=== PATIENT | male | born 1960 | race Caucasian/White ===

== ENCOUNTER 2018-05-03 01:13 | Inpatient (IN) ==
[2018-05-03] MEDS ORDERED: *HR* OxyCODONE/APAP 10/325 TABLET PO ONE (01:36)
[2018-05-03 01:41] LABS: Basophils # 0.1 K/mcL (0.0-0.2); Basophils % 0.4 %; Eosinophils # 0.2 K/mcL (0.0-0.6); Eosinophils % 1.3 %; Hematocrit 45.9 % (37.5-50.1); Hemoglobin 15.6 g/dL (12.9-16.9); Immature Granulocytes % 0.5 % (0-4); Lymphocytes # 2.9 K/mcL (0.6-4.6); Mean Corpuscular Hemoglobin 29.8 pg (28.0-33.3); Mean Corpuscular Volume 87.8 fL (83.0-100.0); Mean Platelet Volume 9.2 fL (9.4-12.4); Monocytes # 0.7 K/mcL (0.0-1.3); Monocytes % 5.6 %; Neutrophils # 8.6 K/mcL (1.6-8.9); Platelet Count 258 K/mcL (140-400); Red Blood Count 5.23 M/mcL (4.19-5.50); Red Cell Distribution Width 13.2 % (11.5-14.5); Segmented Neutrophils % 69.2 %
[2018-05-03 01:49] LABS: INR 1.1; Prothrombin Time 11.7 Seconds (9.4-12.1)
[2018-05-03 02:02] LABS: Troponin I < 0.03 ng/mL (< 0.04)
[2018-05-03 02:03] LABS: Alanine Aminotransferase 38 Units/L (7-52); Albumin 4.4 g/dL (3.5-5.7); Albumin/Globulin Ratio 1.6 (1.1-2.2); Alkaline Phosphatase 67 Units/L (34-104); Amylase 19 Units/L (29-103); Aspartate Amino Transferase 64 Units/L (13-39); BUN/Creatinine Ratio 14 (6-26); Bilirubin,Direct 0.7 mg/dL (0.0-0.2); Bilirubin,Indirect 0.5 mg/dL (0.0-1.2); Bilirubin,Total 1.2 mg/dL (0.3-1.0); Blood Urea Nitrogen 14 mg/dL (6-20); Calcium 9.6 mg/dL (8.6-10.3); Carbon Dioxide 26 mEq/L (23-29); Chloride 104 mEq/L (98-107); Globulin 2.8 g/dL (2.4-3.5); Glucose 195 mg/dL (70-105); Lipase 17 Units/L (11-82); Osmolality,Calculated 294 (280-300); Potassium 3.6 mEq/L (3.5-5.1); Sodium 139 mEq/L (136-145); Total Protein 7.2 g/dL (6.4-8.9); eGFR For African Americans > 60 (> 60); eGFR For Non-African Americans > 60 (> 60)
[2018-05-03] MEDS ORDERED: Piperacillin/Tazobactam 3.375 GM in 0.9 % Sodium Chloride Mini Bag 100 ML IVPB ONE (02:35)
[2018-05-03] MEDS ORDERED: Temazepam 15 MG CAPSULE PO ONE ×2 (04:06→04:30)
[2018-05-03] MEDS ORDERED: OXYCODONE Oral CONC 10 MG/0.5 ML ORAL.SYG SL PRN (04:24)
[2018-05-03] MEDS ORDERED: Ondansetron 4 MG/2 ML VIAL IVP PRN (04:25)
--- NOTE | 2018-05-03 04:28 | Emergency Department Note ---
Disposition Clinical Impression: Acute cholecystitis Disposition: Admitted As Inpatient Condition: Good [facility] - Abdominal Pain HPI - General Chief Complaint: ED Abdominal Pain Stated Complaint: "gall bladder attack" Time Seen by Provider: 05/03/18 01:16 Source: patient, EMS Nursing Notes Reviewed: Yes Vital Signs Reviewed: Yes - History of Present Illness HPI Narrative: 57-year-old male who presents with concern for abdominal pain. He has exquisite tenderness in the right upper quadrant. He was diagnosed with acute cholecystitis on Tuesday and placed on outpatient amoxicillin by the [facility]. He refused surgery stating that he could treat has acute cholecystitis with Epsom salts and coconut oil. He has no fever but significant pain on arrival without vomiting or nausea. General: No acute distress HEENT: Pupils equal and reactive to light, extraoccular muscle movement is normal, TMS are clear bilaterally. Heart: RRR, No murmor rub or gallop Lungs: lungs clear, no wheezing, rales or ronchi. ABD: Right upper quadrant tenderness, Lan's sign on exam Extremities: No cyanosis, clubbing or edema Neuro: CN 2-12 in tact, no focal deficit. strength 5/5. Medical decision making Findings consistent with acute cholecystitis, stone in the gallbladder neck on CAT scan. White count is mildly elevated, AST is elevated, total bilirubin is elevated, abdomen is borderline peritoneal. We will start Zosyn, admitted to general surgical services. Pain Scale: 10 - Related Data Home Medications Medication Instructions Recorded Confirmed Esomeprazole Magnesium [Nexium] 40 mg PO DAILY 06/07/17 05/03/18 Losartan Potassium [Cozaar] 100 mg PO DAILY 06/07/17 05/03/18 Terazosin HCl 2 mg PO DAILY 06/07/17 05/03/18 metFORMIN [Glucophage] 500 mg PO BID 06/07/17 05/03/18 Allergies Allergy/AdvReac Type Severity Reaction Status Date / Time lisinopril AdvReac Cough Verified 06/01/17 09:29 All systems ED: reviewed and negative except as stated. Review of Systems: As Per HPI Abdominal Pain PMH - Past Medical History Medical history: Reports: non-contributory Psychiatric history: Reports: no psych history - Social History Smoking status: Never smoker Alcohol use: Reports: occasionally Drug use: Reports: none Physical Exam - General Limitations: no limitations General appearance: alert, in no apparent distress Course Vital Signs Temperature 97.8 F 05/03/18 01:15 Pulse Rate 73 05/03/18 01:15 Respiratory Rate 20 05/03/18 01:15 Blood Pressure 143/90 05/03/18 01:15 O2 Sat by Pulse Oximetry 95 05/03/18 01:15 Temperature 97.8 F 05/03/18 01:15 Pulse Rate 80 05/03/18 03:29 Respiratory Rate 15 05/03/18 03:29 Blood Pressure 151/84 05/03/18 03:29 O2 Sat by Pulse Oximetry 96 05/03/18 03:29 Oxygen Delivery Oxygen Delivery Room Air Abdominal Pain - Lab Data Result diagrams: 05/03/18 01:17 05/03/18 01:17 Lab Results 05/03/18 05/03/18 05/03/18 Range/Units 01:17 01:17 01:17 WBC 12.4 H (4.3-11.1) K/mcL RBC 5.23 (4.19-5.50) M/mcL Hgb 15.6 (12.9-16.9) g/dL Hct 45.9 (37.5-50.1) % MCV 87.8 (83.0-100.0) fL MCH 29.8 (28.0-33.3) pg MCHC 34.0 (31.6-35.5) g/dL RDW 13.2 (11.5-14.5) % Plt Count 258 (140-400) K/mcL MPV 9.2 L (9.4-12.4) fL Immature Gran % 0.5 (0-4) % Seg Neutrophils % 69.2 % Lymphocytes % 23.0 % Monocytes % 5.6 % Eosinophils % 1.3 % Basophils % 0.4 % Neutrophils # 8.6 (1.6-8.9) K/mcL Lymphocytes # 2.9 (0.6-4.6) K/mcL Monocytes # 0.7 (0.0-1.3) K/mcL Eosinophils # 0.2 (0.0-0.6) K/mcL Basophils # 0.1 (0.0-0.2) K/mcL PT 11.7 (9.4-12.1) Seconds INR 1.1 Sodium 139 (136-145) mEq/L Potassium 3.6 (3.5-5.1) mEq/L Chloride 104 (98-107) mEq/L Carbon Dioxide 26 (23-29) mEq/L BUN 14 (6-20) mg/dL Creatinine 0.99 (0.70-1.30) mg/dL Est GFR ( Amer) > 60 (> 60) Est GFR (Non-Af Amer) > 60 (> 60) BUN/Creatinine Ratio 14 (6-26) Glucose 195 H (70-105) mg/dL Calculated Osmolality 294 (280-300) Calcium 9.6 (8.6-10.3) mg/dL Total Bilirubin 1.2 H (0.3-1.0) mg/dL Direct Bilirubin 0.7 H (0.0-0.2) mg/dL Indirect Bilirubin 0.5 (0.0-1.2) mg/dL AST 64 H (13-39) Units/L ALT 38 (7-52) Units/L Alkaline Phosphatase 67 (34-104) Units/L Troponin I < 0.03 (< 0.04) ng/mL Serum Total Protein 7.2 (6.4-8.9) g/dL Albumin 4.4 (3.5-5.7) g/dL Globulin 2.8 (2.4-3.5) g/dL Albumin/Globulin Ratio 1.6 (1.1-2.2) Amylase 19 L (29-103) Units/L Lipase 17 (11-82) Units/L
[2018-05-03] MEDS ORDERED: Acetaminophen IV 1,000 MG/100 ML INFUS..BTL IVPB PRN (06:00)
[2018-05-03] MEDS: 0.9 % Sodium Chloride 1,000 ML IVC SCH ×2 (06:06→16:19)
[2018-05-03] MEDS ORDERED: Pantoprazole 40 MG VIAL IVP ONE (09:00)
--- NOTE | 2018-05-03 09:42 | General Surg History&Physical ---
<Tiffanie Dobbs Misty - Last Filed: 05/03/18 09:36> Date of Encounter: 05/03/18 Time of Encounter: 09:15 Assessment and Plan (1) Acute cholecystitis Current Visit: Yes Status: Acute The assessment and plan as outlined above was discussed with the patient and/or family members who expressed understanding and agreement. All questions were answered. NPO IV fluids IV antibiotics- Zosyn Supportive care and pain control Plan for Laparosocpic cholecystectomy, possible cholangiogram, possible open with Dr. Page in the next 24 hours if the patient is agreeable- he wishes to discuss his options for non-surgical intervention prior to proceeding Incentive Sprirometer every 1 hour while awake PPI therapy daily Ambulate hallways TID Repeat am labs- CBC, BMP, hepatic panel (2) Diabetes mellitus Current Visit: Yes Status: Chronic The assessment and plan as outlined above was discussed with the patient and/or family members who expressed understanding and agreement. All questions were answered. Hold PO medications while NPO Will cover with SSI Qualifiers: Diabetes mellitus type: type 2 Diabetes mellitus senior care insulin use: without senior care use Diabetes mellitus complication status: with hyperglycemia Qualified Code(s): E11.65 - Type 2 diabetes mellitus with hyperglycemia (3) Hypertension Current Visit: Yes Status: Chronic The assessment and plan as outlined above was discussed with the patient and/or family members who expressed understanding and agreement. All questions were answered. Stable at this time Metoprolol 5mg IV every 6 hours while NPO Qualifiers: Hypertension type: essential hypertension Qualified Code(s): I10 - Essential (primary) hypertension (4) GERD (gastroesophageal reflux disease) Current Visit: Yes Status: Chronic The assessment and plan as outlined above was discussed with the patient and/or family members who expressed understanding and agreement. All questions were answered. PPI therapy daily Qualifiers: Esophagitis presence: esophagitis presence not specified Qualified Code(s) : K21.9 - Gastro-esophageal reflux disease without esophagitis (5) DVT prophylaxis Current Visit: Yes Status: Acute The assessment and plan as outlined above was discussed with the patient and/or family members who expressed understanding and agreement. All questions were answered. EPCDs to bilateral lower extremities for DVT prophylaxis Ambulate hallways TID with assistance History of Present Illness Chief complaint: Abdominal pain HPI: Mr. Arroyo is a 57 year old male who presents to the emergency department with complaints of right upper quadrant and epigastric pain which started 2 days ago. He states that the pain is constant and he describes it as a sharp and stabbing pain. He states that the pain is worse with eating. He states that he did eat pork, onions, and eggs over the past 2 days all of which have caused increase in pain. He denies any nausea but states that he has vomited 4 times over the last 2 days. He denies any hematemesis or coffee-ground emesis. He states that his appetite is normal. He denies any heartburn. He admits to shortness of breath because taking a deep breath causes increased pain. He states that he does feel hot at times but did not check his temperature. He has been afebrile since admission. He admits to diarrhea which started yesterday. Denies any melena or hematochezia. Denies any difficulty with urination. He states that he did have pain similar to this in 2003 and was told that he had gallstones. He states that he did a "liver flush" which resolved his symptoms until now. Past Med Surg Social Fam HX - Past Medical History Source: patient Medical history: diabetes, GERD, hypertension, other (ED, Gout, BPH, DDD, Insomnnia, Diverticular disease) Psychiatric history: no psych history - Past Surgical History Surgical History: herniorrhaphy (umbilical with mesh), orthopedic, other ( Bilateral knee scopes, Bilateral CTR), other (Colonoscopy X2- last was approximately 4 years ago) Additional surgical history: bilateral knee surgery, umbilical hernia mesh - Social History Smoking Status: Never smoker Smokeless Tobacco Status: No Alcohol use: occasionally Drug use: none Current living situation: Home - Independent Activity Level: Independent ambulation - Family History Mother Living Status: Age at : 73 Cause of : Lung cancer Hx Family Cancer: Yes (Lung) Father Living Status: Age at : 63 Cause of : Multiple myeloma Hx Family Cancer: Yes (Multiple myeloma) Daughter Living Status: Still Living Hx Family Medical Disorders: Yes (arthritis) Medications and Allergies Esomeprazole Magnesium [Nexium] 40 mg PO DAILY 06/07/17 [History] Losartan Potassium [Cozaar] 100 mg PO DAILY 06/07/17 [History] Terazosin HCl 2 mg PO DAILY 06/07/17 [History] metFORMIN [Glucophage] 500 mg PO BID 06/07/17 [History] Amoxicillin/Clavulanate [Augmentin] 875 mg PO BIDWM 05/03/18 [History] Dicyclomine [Bentyl] 10 mg PO QID 05/03/18 [History] Ondansetron HCl [Zofran] 4 mg PO QID PRN 05/03/18 [History] 3 Allergy/AdvReac Type Severity Reaction Status Date / Time lisinopril AdvReac Cough Verified 05/03/18 09:34 Review of Systems All systems PM: reviewed and no additional remarkable complaints except as stated (in the HPI) All systems PM: The remainder of the systems were reviewed and are negative General Surgery Exam Initial Vital Signs Temp Pulse Resp BP Pulse Ox 97.8 F 73 20 143/90 95 05/03/18 01:15 05/03/18 01:15 05/03/18 01:15 05/03/18 01:15 05/03/18 01:15 Results - Labs 05/03/18 01:17 05/03/18 01:17 Abnormal lab results WBC 12.4 K/mcL (4.3-11.1) H 05/03/18 01:17 MPV 9.2 fL (9.4-12.4) L 05/03/18 01:17 Glucose 195 mg/dL (70-105) H 05/03/18 01:17 Total Bilirubin 1.2 mg/dL (0.3-1.0) H 05/03/18 01:17 Direct Bilirubin 0.7 mg/dL (0.0-0.2) H 05/03/18 01:17 AST 64 Units/L (13-39) H 05/03/18 01:17 Amylase 19 Units/L (29-103) L 05/03/18 01:17 All other labs normal. - Imaging CT scan - abdomen: report reviewed CT scan - pelvis: report reviewed Additional studies: Abdomen/Pelvis CT 05/03/18 01:18 IMPRESSION: Uncomplicated acute cholecystitis. No bile duct dilatation or apparent bile duct stone, however there is a tiny stone at the gallbladder neck. Colonic diverticulosis. Normal appendix. No evidence of urinary tract stone disease or obstructive uropathy. Borderline hepatic steatosis. D/ / Mamadou Bess / Mamadou Bess Interpreting Provider: Mamadou Bess - Attending Attestation For this encounter, I have reviewed the OFFICE TECHNOLOGIST or PA documentation, treatment plan, and medical decision making; and I have had face to face time with this patient. <Gemma Page - Last Filed: 05/03/18 19:56> Date of Encounter: 05/03/18 Time of Encounter: 12:15 Assessment and Plan (1) Acute cholecystitis Current Visit: Yes Status: Acute The assessment and plan as outlined above was discussed with the patient and/or family members who expressed understanding and agreement. All questions were answered. discussed with patient his CT results and labs discussed that I have never heard of his homeopathic therapy before nor do I think it will take care of his gallbladder disease and acute cholecystisits will plan laparoscopic cholecystectomy, possible cholangiograms possible open, risks and benefits discussed and he wishes to proceed npo ivf hydration prn pain control prn antiemetics gi/dvt prophylaxis (2) Diabetes mellitus Current Visit: Yes Status: Chronic The assessment and plan as outlined above was discussed with the patient and/or family members who expressed understanding and agreement. All questions were answered. Qualifiers: Diabetes mellitus type: type 2 Diabetes mellitus senior care insulin use: without terminal operations supervisor use Diabetes mellitus complication status: with hyperglycemia Qualified Code(s): E11.65 - Type 2 diabetes mellitus with hyperglycemia (3) GERD (gastroesophageal reflux disease) Current Visit: Yes Status: Chronic The assessment and plan as outlined above was discussed with the patient and/or family members who expressed understanding and agreement. All questions were answered. Qualifiers: Esophagitis presence: esophagitis presence not specified Qualified Code(s) : K21.9 - Gastro-esophageal reflux disease without esophagitis (4) Hypertension Current Visit: Yes Status: Chronic The assessment and plan as outlined above was discussed with the patient and/or family members who expressed understanding and agreement. All questions were answered. Qualifiers: Hypertension type: essential hypertension Qualified Code(s): I10 - Essential (primary) hypertension History of Present Illness HPI: Mr. Arroyo is a 57 year old male who has had what he describes as gallbladder pain on and off for years. He states he has read previously where if you drink epsom salts mixed with lemon juice and oil it will dissolve the gallstones or help them pass into the bowels. He states he has collected gallstones from this therapy over the years. He had an episode of RUQ pain nausea and emesis two days ago and presented to the ED. He wanted to try his homopathic therapy and was discharged. He returned overnight with increased RUQ pain. He has been having nausea or emesis. Denies diarrhea. Review of Systems All systems PM: reviewed and no additional remarkable complaints except as stated All systems PM: The remainder of the systems were reviewed and are negative General Surgery Exam Initial Vital Signs Temp Pulse Resp BP Pulse Ox 97.8 F 73 20 143/90 95 05/03/18 01:15 05/03/18 01:15 05/03/18 01:15 05/03/18 01:15 05/03/18 01:15 - General physical appearance well developed, well nourished, no distress - Eyes PERRL, normal ocular movement - ENT normal mucosa, normocephalic - Neck trachea midline - Respiratory normal expansion, clear to auscultation - Cardiovascular Cardiovascular exam: Present: RRR - Abdomen Abdomen general surgery: Present: bowel sounds present, soft, tender Abdominal Tenderness: Present: RUQ (minimally) - Integumentary Integumentary general surgery: Present: warm and dry, no abnormal pigmentation - Neurologic Present: CN 2-12 grossly intact - Musculoskeletal Present: normal posture - Psychiatric Psychiatric general surgery: Present: A&Ox3, speech is normal Results - Labs 05/03/18 01:17 05/03/18 01:17 Abnormal lab results WBC 12.4 K/mcL (4.3-11.1) H 05/03/18 01:17 MPV 9.2 fL (9.4-12.4) L 05/03/18 01:17 Glucose 195 mg/dL (70-105) H 05/03/18 01:17 POC Glucose 123 mg/dL (70-99) H 05/03/18 17:35 Total Bilirubin 1.2 mg/dL (0.3-1.0) H 05/03/18 01:17 Direct Bilirubin 0.7 mg/dL (0.0-0.2) H 05/03/18 01:17 AST 64 Units/L (13-39) H 06/20/18 01:17 Amylase 19 Units/L (29-103) L 05/03/18 01:17 All other labs normal. - Imaging CT scan - abdomen: report reviewed, image reviewed CT scan - pelvis: report reviewed, image reviewed - Attending Attestation I examined this patient and my medical decision-making was reviewed with the Resident Physician. I agree with the documented findings, disposition and treatment plan as described except to the extent set forth below.
[2018-05-03] MEDS ORDERED: Dextrose Gel 15 GM/37.5 ML TUBE PO PRN ×2 (09:57)
[2018-05-03] MEDS ORDERED: *HR* Dextrose 50 % in Water (Syg) 50 ML SYRINGE IVP PRN (09:57)
[2018-05-03] MEDS ORDERED: D5% in Water 1,000 ML IVC PRN (09:57)
[2018-05-03] MEDS ORDERED: Naloxone 0.4 MG/ML INJ IVP PRN (10:01)
[2018-05-03] MEDS: Insulin LISPRO 300 UNITS/3 ML VIAL SQ SCH ×2 (11:55→17:52)
[2018-05-03] MEDS: *HR* Metoprolol 5 MG/5 ML VIAL IVP SCH ×2 (12:03→18:33)
[2018-05-03] MEDS: Piperacillin/Tazobactam 3.375 GM in 0.9 % Sodium Chloride Mini Bag 100 ML IVPB SCH ×2 (12:04→16:21)
[2018-05-03 15:08] VITALS: BP 114/71
[2018-05-03] MEDS ORDERED: Isovue-300 50 ML VIAL IVP ONE (18:04)
--- NOTE | 2018-05-03 18:39 | Anesthesia Evaluation PreOp ---
Date of Encounter: 05/03/18 Time of Encounter: 18:52 - Past History Planned Operation: Lap cholecystectomy Cardiac History: HTN Pulmonary History: Former smoker HAND CLOTH EXAMINER History: Denies Any Significant HX Other Medical History: Diabetes Type II, GERD (Controlled) Anesthesia History: No Prior Anesthetic Complications, Past Anesthesia Alcohol Use: occasionally Drug use: none Medications and Allergies Esomeprazole Magnesium [Nexium] 40 mg PO DAILY 06/07/17 [History] Losartan Potassium [Cozaar] 100 mg PO DAILY 06/07/17 [History] Terazosin HCl 2 mg PO DAILY 06/07/17 [History] metFORMIN [Glucophage] 500 mg PO BID 06/07/17 [History] Amoxicillin/Clavulanate [Augmentin] 875 mg PO BIDWM 05/03/18 [History] Dicyclomine [Bentyl] 10 mg PO QID 05/03/18 [History] Ondansetron HCl [Zofran] 4 mg PO QID PRN 05/03/18 [History] 3 Allergy/AdvReac Type Severity Reaction Status Date / Time lisinopril AdvReac Cough Verified 05/03/18 09:34 - Meds/Allergy Pre-op Review Medications Reviewed: Yes Allergies Reviewed: Yes Anesthesia Results - Labs 05/03/18 01:17 05/03/18 01:17 Anesthesia Exam 2 Height 1.78 m Weight 92.986 kg BMI 29 Vital Signs/O2 Sat/Glucose, Most Recent Temp Pulse Resp BP Pulse Ox 99.5 F 75 18 114/71 94 05/03/18 17:55 05/03/18 17:57 05/03/18 15:04 05/03/18 15:04 05/03/18 15:04 Blood Glucose* 123 NPO (# of Hours): 8 - HEENT Pupil (Motor): Pupils equal Mallampati: I Teeth: Normal Oral Opening: Greater than 3 - Cardiac Rhythm: Regular - Pulmonary Breath Sounds: bilateral Clear Anesthesia Assess/Plan ASA Score: 2 Modified [place] Scale for Level of Consciousness: Cooperative, oriented, and tranquil Anesthetic Plan: General Monitoring Plan: Standard Monitors Recovery Plan: PACU
[2018-05-03] MEDS ORDERED: *HR* Midazolam HCl 2 MG/2 ML VIAL ONE (19:09)
[2018-05-03] MEDS ORDERED: *HR* Propofol 200 MG/20 ML VIAL IVP ONE (19:09)
[2018-05-03] MEDS ORDERED: *HR* FentaNYL (PF) 100 MCG/2 ML VIAL ONE (19:09)
[2018-05-03] MEDS ORDERED: *HR* Rocuronium Bromide 50 MG/5 ML VIAL ONE (19:12)
[2018-05-03] MEDS ORDERED: Dexamethasone 4 MG/ML VIAL ONE (19:12)
[2018-05-03] MEDS ORDERED: *HR* Succinylcholine 200 MG/10 ML VIAL IVP ONE (19:12)
[2018-05-03] MEDS ORDERED: Ondansetron 4 MG/2 ML VIAL ONE (19:12)
[2018-05-03] MEDS ORDERED: Lidocaine -MPF 2% 2 ML VIAL ONE (19:12)
--- NOTE | 2018-05-03 20:15 | Event Note ---
Date of Encounter: 05/03/18 Time of Encounter: 20:12 Patient was brought down to operative holding area. Once down here he decided he had not gone through the proper channels to have surgery, ie [facility]. We discussed that I have never heard of anyone not having their hospital bill pain for a cholecystectomy for acute cholecystitis. He states he wants to be discharged as he is no longer in pain. He is refusing surgery.
--- NOTE | 2018-05-03 20:18 | Discharge Summary ---
Orders not resulted at time of discharge: Pending orders 05/03/18 18:11 XR cholangiogram operative [XR] Routine 05/04/18 04:00 Basic Metabolic Panel AM 0400 Complete Blood Count [HEME] AM 0400 Hepatic Panel AM 0400 Date of Encounter: 05/03/18 Time of Encounter: 20:18 - Discharge Diagnosis (1) Acute cholecystitis Priority: Primary Status: Acute (2) Diabetes mellitus Priority: Secondary Status: Chronic Qualifiers: Diabetes mellitus type: type 2 Diabetes mellitus intermediate manager insulin use: without mcfp use Diabetes mellitus complication status: with hyperglycemia Qualified Code(s): E11.65 - Type 2 diabetes mellitus with hyperglycemia (3) GERD (gastroesophageal reflux disease) Priority: Secondary Status: Chronic Qualifiers: Esophagitis presence: esophagitis presence not specified Qualified Code(s) : K21.9 - Gastro-esophageal reflux disease without esophagitis (4) Hypertension Priority: Secondary Status: Chronic Qualifiers: Hypertension type: essential hypertension Qualified Code(s): I10 - Essential (primary) hypertension General Surgery Exam Initial Vital Signs Temp Pulse Resp BP Pulse Ox 97.8 F 73 20 143/90 95 05/03/18 01:15 05/03/18 01:15 05/03/18 01:15 05/03/18 01:15 05/03/18 01:15 - General physical appearance well nourished, no distress - Eyes PERRL, normal ocular movement - ENT normal mucosa, normocephalic - Neck trachea midline - Respiratory normal expansion, clear to auscultation - Cardiovascular Cardiovascular exam: Present: RRR - Abdomen Abdomen general surgery: Present: bowel sounds present, soft, non tender - Integumentary Integumentary general surgery: Present: warm and dry - Neurologic Present: CN 2-12 grossly intact - Musculoskeletal Present: normal gait, normal posture - Psychiatric Psychiatric general surgery: Present: A&Ox3 - Hospital Course Hospital course: Mr. Arroyo is a 57 year old male who was admitted for RUQ pain, nausea and emesis. He was found to have acute cholecystitis. He was admitted to the hospital with the intention to he would undergo laparoscopic cholecystectomy. He was kept npo, ivf hydration, antibiotics, prn pain control. Once patient was brought down to holding area before surgery he stated he wanted to be discharged as he no longer had abdominal pain and wanted to go home and be more diligent with his homeopathic regimen of epsom salts, oil and lemon juice to flush out his gallstones. I told him that is not an appropriate remedy as it does not work. He refused surgery. He was returned to the hospital floor and discharged home. - Time Spent with Patient Total time spent providing and/or coordinating discharge services: - Discharge Medications Home Medications: Esomeprazole Magnesium [Nexium] 40 mg PO DAILY 06/07/17 [History] Losartan Potassium [Cozaar] 100 mg PO DAILY 06/07/17 [History] Terazosin HCl 2 mg PO DAILY 06/07/17 [History] metFORMIN [Glucophage] 500 mg PO BID 06/07/17 [History] Amoxicillin/Clavulanate [Augmentin] 875 mg PO BIDWM 05/03/18 [History] Dicyclomine [Bentyl] 10 mg PO QID 05/03/18 [History] Ondansetron HCl [Zofran] 4 mg PO QID PRN 05/03/18 [History] Allergies/Adverse Reactions: 3 Allergy/AdvReac Type Severity Reaction Status Date / Time lisinopril AdvReac Cough Verified 05/03/18 09:34 Date of admission: 05/03/18 10:01 Primary care physician: PCP [place] Discharging clinician: Gemma Page Anticipated date of discharge: 05/03/18 Labs on day of discharge: Labs from last 24 hours 05/03/18 17:35 POC Glucose 123 H - Patient Status Disposition: Home, Self-Care Condition: Fair Overall status at discharge: patient is progressing back to baseline - Discharge Instructions Instructions: Cholecystitis (GEN) Follow Up With: [facility],PCP [Primary Care Provider] - Gemma Page MD [Partnered Physician] - (call for appointment in one week. you need to have a hepatic panel drawn day before office appointment) - Diet and Activity Activity: increase activity as tolerated Diet: low fat, low cholesterol
== END 2018-05-03 21:00 | disposition home or self-care (01) | DRG 446 ==
LOC: 3ANU 01:13 → EMEROO 01:13 → 3ANU 04:57
PROVIDERS: ADMIT Surgery; ATTEND Surgery

== ENCOUNTER 2018-05-16 18:24 | Inpatient (IN) ==
--- NOTE | 2018-05-16 18:35 | Emergency Department Note ---
Disposition Clinical Impression: Intractable abdominal pain, Nausea, Abnormal gallbladder ultrasound Disposition: Admitted As Inpatient Condition: Good [facility]errals: [facility] [Primary Care Provider[facility] - Forms: ED Satisfaction Letter, Work/School Release Abdominal Pain HPI - General Chief Complaint: ED Abdominal Pain Stated Complaint: bad galled bladders Time Seen by Provider: 05/16/18 18:28 Source: patient, EMS Mode of arrival: ambulatory Limitations: no limitations Nursing Notes Reviewed: Yes Vital Signs Reviewed: Yes - History of Present Illness HPI Narrative: Patient presents as a transfer from the [place] for evaluation of acute cholecystitis. Patient was seen and admitted on May 03 and was transferred to the [facility] for similar findings. While in the hospital the patient had his pain resolved and he refused surgery and was discharged home. He was placed on antibiotics. Patient has returned to the [place] secondary to worsening symptoms started last night after eating. Patient's symptoms have been persistent since then. He describes epigastric and right upper quadrant abdominal pain. Patient has not been able to tolerate food since. Patient to have vomiting this morning. States he has a long history of gallbladder problems. They refused to have it taken out. Patient states that he is sick of dealing with all this now and does agree that if everyone is in agreement that should come out. It was discussed multiple times the patient and he is going to be brought in the hospital he is willing to discuss with surgery and potentially have it removed that is the recommendation. Past medical history of type 2 diabetes, arthritis, hypertension, hyperlipidemia , diverticulosis, cervical radiculopathy, plantar fasciitis, abnormal LFTs, hypertriglyceridemia presents for evaluation of right upper quadrant abdominal pain as a transfer from the [place]. White blood cell count 13.5, hemoglobin 16.3, platelets 328, sodium 142, potassium 3.8, and toast 125, creatinine 1.17, WN 11, CO2 27, chloride 104. AST 58, ALC 66, total bilirubin 1.2, calcium 9.4, albumin 4.3, lipase 103, amylase 26. Patient with gallbladder ultrasound performed on 05/16/18. Suspected cholelithiasis and gallbladder sludge similar to 05/01/18. Persistent gallbladder wall thickening. No pericholecystic fluid. Borderline to mild common duct and pancreatic ductal dilation is nonspecific. Medications include amoxicillin, aspirin, baclofen, calcium, co-enzyme Q10, Bentyl, digestive enzymes, fish oil, losartan, ondansetron, trazodone Pain Scale: 8 - Related Data Home Medications Medication Instructions Recorded Confirmed Esomeprazole Magnesium [Nexium] 40 mg PO DAILY 06/07/17 05/16/18 Losartan Potassium [Cozaar] 100 mg PO DAILY 06/07/17 05/16/18 Terazosin HCl 2 mg PO DAILY 06/07/17 05/16/18 metFORMIN [Glucophage] 500 mg PO BID 06/07/17 05/16/18 Allergies Allergy/AdvReac Type Severity Reaction Status Date / Time lisinopril AdvReac Cough Verified 05/16/18 19:25 Review of Systems: CONSTITUTIONAL: No weight loss, fever, chills, weakness or fatigue. HEENT: Eyes: No visual changes. Ears, Nose, Throat: No hearing loss, difficulty talking or unable to swallow. SKIN: No rash or itching. CARDIOVASCULAR: No chest pain, chest pressure or chest discomfort. No palpitations or edema. RESPIRATORY: No shortness of breath, cough or sputum. GASTROINTESTINAL: Epigastric abdominal pain with vomiting and nausea. No diarrhea or constipation. GENITOURINARY: No burning on urination or hematuria. NEUROLOGICAL: No headache, dizziness, syncope, paralysis, ataxia, numbness or tingling in the extremities. No change in bowel or bladder control. MUSCULOSKELETAL: No muscle pain, back pain, joint pain or stiffness. Abdominal Pain PMH - Past Medical History Medical history: Reports: diabetes, GERD, hypertension, other Psychiatric history: Reports: no psych history - Social History Smoking status: Unknown if ever smoked Alcohol use: Reports: occasionally Drug use: Reports: none Physical Exam General: Holding emesis basin; complaining of 8 out of 10 pain, Head: Normocephalic Atraumatic Eyes: PERRL, EOMI ENT: Airway patent, no stridor Neck: supple, no meningismus Chest: Lungs clear to auscultation bilateral Cardiac: Regular rate and rhythm, no murmurs, rubs or gallops Abdomen: Abdomen is soft. Midepigastric tenderness. No CVA tenderness. No rebound or guarding. Skin: No rash, normal skin tone Neuro: Alert and Oriented to person, place, and time; No focal deficit - General Limitations: no limitations General appearance: alert, in no apparent distress Course - Consultations Consultation #1: Discussed with Dr. Mayfield. Patient does not likely have acute cholecystitis but does potentially have gallbladder wall thickening and inflammation from a nonbacterial source. Requests repeat INR. Does not necessarily recommend antibiotics at this time unless the hospitalist wants further antibiotics. Consultation #2: Discussed with hospitalist, Dr. Jerry, at this point the patient will have blood cultures drawn as well as IV antibiotics because we can always de- escalate later. Patient will be admitted to the hospital service. Vital Signs Temperature 98.1 F 05/16/18 18:25 Pulse Rate 64 05/16/18 18:25 Respiratory Rate 18 05/16/18 18:25 Blood Pressure 187/98 05/16/18 18:25 O2 Sat by Pulse Oximetry 99 05/16/18 18:25 Temperature 98.1 F 05/16/18 18:25 Pulse Rate 64 05/16/18 18:25 Respiratory Rate 18 05/16/18 18:25 Blood Pressure 187/98 05/16/18 18:25 O2 Sat by Pulse Oximetry 99 05/16/18 18:25 Oxygen Delivery Oxygen Delivery Room Air
[2018-05-16] MEDS ORDERED: Hyoscyamine 0.5 MG/ML MLS IVP ONE (18:39)
[2018-05-16] MEDS ORDERED: Ondansetron 4 MG/2 ML VIAL IVP ONE (18:39)
[2018-05-16] MEDS ORDERED: INSULIN HUMAN REGULAR IV ONE (18:57)
[2018-05-16] MEDS ORDERED: SODIUM CHLORIDE 0.9% IV ONE (18:57)
[2018-05-16] MEDS ORDERED: *HR* HYDROmorphone (PF) 1 MG/ML SYRINGE IVP ONE (19:03)
[2018-05-16 19:38] LABS: Bilirubin,Urine Negative (Negative); Blood,Urine Negative (Negative); Clarity,Urine Cloudy (Clear); Color,Urine Yellow (Yellow); Glucose,Urine (UA) Normal (Normal); Ketones,Urine Negative (Negative); Leukocyte Esterase,Urine Negative (Negative); Nitrite,Urine Negative (Negative); PH,Urine 7.5 pH Units (5.0-8.0); Protein,Urine Negative (Neg-Trace); Specific Gravity,Urine 1.014 (1.010-1.025); Urobilinogen,Urine Normal (Normal)
[2018-05-16 19:41] LABS: Bacteria,Urine None Seen per hpf (None-Few); Hyaline Casts,Urine None Seen per lpf (None-Few); RBC,Urine 0-3 per hpf (0-3); Squamous Epithelial Cell,Urine Few per lpf (None-Few); WBC,Urine 0-3 per hpf (0-3)
[2018-05-16] MEDS ORDERED: Piperacillin/Tazobactam 3.375 GM in 0.9 % Sodium Chloride Mini Bag 100 ML IVPB ONE ×2 (19:41→20:00)
[2018-05-16 19:48] LABS: Prothrombin Time 11.3 Seconds (9.4-12.1)
[2018-05-16] MEDS ORDERED: Piperacillin/Tazobactam 3.375 GM VIAL ONE (19:57)
--- NOTE | 2018-05-16 21:22 | Internal Med History&Physical ---
<Shawna Hunt - Last Filed: 05/16/18 22:23> Date of Encounter: 05/16/18 Time of Encounter: 21:14 Internal Medicine - H&P: HPI Chief complaint: Abdominal pain Admitted From: Hospital to Hospital Transfer Plans for Post Hospital Care: Home History of present illness: Mr. Arroyo is a 57 year old male with a past medical history of hypertension, hyperlipidemia, diabetes presented to [facility] as a transfer from the [place] for evaluation of cholecystitis. The patient reported that his pain in his right upper quadrant and epigastric region began last night about 9pm after eating a dinner consisting of chili. He also reported having fried chicken and waffles earlier in the day. Today the pain continued to worsen so he went back to the [place]. The pain was described as a punch to the stomach and intermittent. He had associated nausea, vomiting, chills. He denied fever, diarrhea, constipation, chest pain, shortness of breath. Of note , he was recently evaluated for cholecystitis at [facility] and was to undergo cholecystectomy on 05/03/2018 however during that admission his pain resolved and he decided not to have surgery. The patient is a non-smoker, tonight drug use, occasional alcohol use. He is a full code. Per [place] records: White blood cell count 13.5, hemoglobin 16.3, platelets 328, sodium 142, potassium 3.8, and glucose 125, creatinine 1.17, BUN 11, CO2 27, chloride 104. AST 58, ALT 66, total bilirubin 1.2, calcium 9.4, albumin 4.3, lipase 103, amylase 26. Gallbladder ultrasound performed on 05/16/18: Suspected cholelithiasis and gallbladder sludge similar to 05/01/18. Persistent gallbladder wall thickening. No pericholecystic fluid. Borderline to mild common duct and pancreatic ductal dilation is nonspecific. In the ED Dr. Mayfield of general surgery was consulted to evaluate the patient. Blood cultures have been taken, he is NPO, and patient was started on Zosyn. He was given Dilaudid for pain relief and is currently pain free. Past Med Surg Social Fam HX - Past Medical History Attestation: Yes The following information was validated with the patient. Source: patient Medical history: diabetes, GERD, hypertension, other Additional medical history: HTN,BPH,DM,umbilical hernia,DDD Psychiatric history: no psych history - Past Surgical History Surgical History: herniorrhaphy (umbilical with mesh), orthopedic, other ( Bilateral knee scopes, Bilateral CTR), other (Colonoscopy X2- last was approximately 4 years ago) Additional surgical history: bilateral knee surgery, umbilical hernia mesh - Social History Smoking Status: Never smoker Smokeless Tobacco Status: No Alcohol use: occasionally Drug use: none - Family History Mother Living Status: Hx Family Cancer: Yes (Lung) Father Living Status: Hx Family Cancer: Yes (Multiple myeloma) Daughter Living Status: Still Living Internal Medicine - H&P: Meds Esomeprazole Magnesium [Nexium] 40 mg PO DAILY 06/07/17 [History] Losartan Potassium [Cozaar] 100 mg PO DAILY 06/07/17 [History] Terazosin HCl 2 mg PO DAILY 06/07/17 [History] metFORMIN [Glucophage] 500 mg PO BID 06/07/17 [History] 3 Allergy/AdvReac Type Severity Reaction Status Date / Time lisinopril AdvReac Cough Verified 05/16/18 19:25 All Systems PM: A 10-system review of systems was performed and is negative for pertinent findings except as documented above in the HPI. - Constitutional Constitutional: chills, no fever(s) - EENT Eyes: no change in vision - Cardiovascular Cardiovascular ROS IM: no chest pain, no diaphoresis, no lightheadedness - Respiratory Respiratory: no cough, no dyspnea - Gastrointestinal Gastrointestinal: abdominal pain, nausea, vomiting, no coffee ground emesis, no constipation, no diarrhea, no hematochezia, no melena - Genitourinary Genitourinary ROS male: no dysuria, no urinary frequency - Musculoskeletal Musculoskeletal ROS IM: no muscle cramps - Integumentary Integumentary IM: no erythema, no pruritus, no rash - Neurological Neurological ROS: no confusion - Hematologic/Lymphatic Hematologic/Lymphatic: no easy bleeding - Constitutional Vitals: Temp Pulse Resp BP Pulse Ox 98.1 F 68 18 168/88 99 05/16/18 18:25 05/16/18 20:32 05/16/18 20:32 05/16/18 20:32 05/16/18 20:32 General appearance: Present: A&O X 3, pleasant, no acute distress - Head Head exam: Present: atraumatic, normal inspection - Eye Eye exam: Present: normal appearance. Absent: conjunctival injection - Respiratory Respiratory exam: Present: CTAB. Absent: rales, rhonchi - Cardiovascular Cardiovascular exam: Present: RRR. Absent: clicks, systolic murmur - GI/Abdominal GI/Abdominal exam: Present: hypoactive bowel sounds, soft. Absent: firm, guarding, tenderness - Extremities Exam Extremities exam: Present: normal inspection. Absent: pedal edema, tenderness - Back Exam Back exam: Absent: CVA tenderness (L), CVA tenderness (R) - Neurological Exam Neurological exam: Present: alert, oriented X3 - Psychiatric Psychiatric exam: Present: normal affect, normal mood - Skin Skin exam: Present: dry, intact - Assessment and plan (1) Intractable abdominal pain Current Visit: Yes Status: Acute Assessment and plan: Right upper quadrant and epigastric pain consistent with biliary colic and cholelithiasis demonstrated by ultrasound. This is unlikely to be cholecystitis. Patient was transferred from [place] due to abdominal ultrasound demonstrating cholelithiasis and gallbladder sludge. On 05/03/2018 he was found to have a cholecystitis at [facility] and was to undergo cholecystectomy however pain resolved and he decided to not have surgery. His pain returned yesterday evening after eating a bowl of chili and today the pain worsened along with nausea and vomiting. Upon my examination the patient was pain free after he received IV Dilaudid in ED. Abdomen soft, nontender, negative Lan signed, no rebound. Afebrile, WBC 13.5, AST 58, ALT 66, total bilirubin 1.2, lipase 103, amylase 26. Gallbladder ultrasound performed on 05/16/18: Suspected cholelithiasis and gallbladder sludge similar to 05/01/18. Persistent gallbladder wall thickening. No pericholecystic fluid. Borderline to mild common duct and pancreatic ductal dilation is nonspecific. Plan -Dr. Mayfield of general surgery was consulted in the ED -NPO -continue IV Zosyn until blood cultures result -IVF, Zofran PRN and pain management -blood culture pending -recheck CBC, CMP in morning (2) Diabetes mellitus Current Visit: No Status: Chronic Assessment and plan: History of known diabetes taking metformin. He is not taking his metformin since 05/02/2018 and he reports his glucose has been in high 90s since. -Monitor glucose -low dose sliding scale insulin Qualifiers: Diabetes mellitus type: type 2 Diabetes mellitus superintendent terminal insulin use: without superintendent terminal use Diabetes mellitus complication status: with hyperglycemia Qualified Code(s): E11.65 - Type 2 diabetes mellitus with hyperglycemia (3) Hypertension Current Visit: No Status: Chronic Assessment and plan: History of hypertension taking losartan. Blood pressure is elevated at this time however the patient reports that he is not taking his medication since due to fear that this would irritate his stomach. Will continue home losartan and monitor BP Qualifiers: Hypertension type: essential hypertension Qualified Code(s): I10 - Essential (primary) hypertension (4) GERD (gastroesophageal reflux disease) Current Visit: No Status: Chronic Assessment and plan: History of known Gerd. -Give Protonix Qualifiers: Esophagitis presence: esophagitis presence not specified Qualified Code(s) : K21.9 - Gastro-esophageal reflux disease without esophagitis (5) DVT prophylaxis Current Visit: No Status: Acute Assessment and plan: EPCD since patient is to have surgery tomorrow (6) Nausea Current Visit: Yes Status: Acute Assessment and plan: Nausea associated with the abdominal pain. Zofran PRN - Time Spent With Patient Total time spent is greater than 50% in coordination of care (as documented) at patient's floor/unit and/or counseling patient: <Frieda Jerry - Last Filed: 05/17/18 05:58> Date of Encounter: 05/17/18 Internal Medicine - H&P: HPI History of present illness: Mr. Arroyo is a 57 year old male All Systems PM: A 10-system review of systems was performed and is negative for pertinent findings except as documented above in the HPI. - Constitutional Vitals: Temp Pulse Resp BP Pulse Ox 97.9 F 59 16 120/76 96 05/17/18 03:57 05/17/18 03:57 05/17/18 03:57 05/17/18 03:57 05/17/18 03:57 Internal Med - H&P Results - Labs CBC & Chem 7: 05/17/18 01:46 05/17/18 01:46 Labs: Short CBC 05/17/18 Range/Units 01:46 WBC 8.9 (4.3-11.1) K/mcL Hgb 13.7 (12.9-16.9) g/dL Hct 39.7 (37.5-50.1) % Plt Count 275 (140-400) K/mcL Neutrophils # 5.0 (1.6-8.9) K/mcL BMP 05/17/18 01:46 Sodium 139 Potassium 3.4 L Chloride 107 Carbon Dioxide 26 BUN 8 Creatinine 1.09 Glucose 93 Calcium 8.8 Liver Function 05/17/18 Range/Units 01:46 Total Bilirubin 1.0 (0.3-1.0) mg/dL AST 99 H (13-39) Units/L ALT 101 H (7-52) Units/L Alkaline Phosphatase 78 (34-104) Units/L Albumin 3.6 (3.5-5.7) g/dL - Attending Attestation I have seen and examined this patient independently. I have discussed with Resident physician Dr Hunt regarding the management plan. Agree with the documentation. - Assessment and plan (1) Diabetes mellitus Current Visit: No Status: Chronic Qualifiers: Diabetes mellitus type: type 2 Diabetes mellitus fci insulin use: without fci use Diabetes mellitus complication status: with hyperglycemia Qualified Code(s): E11.65 - Type 2 diabetes mellitus with hyperglycemia (2) Hypertension Current Visit: No Status: Chronic Qualifiers: Hypertension type: essential hypertension Qualified Code(s): I10 - Essential (primary) hypertension (3) GERD (gastroesophageal reflux disease) Current Visit: No Status: Chronic Qualifiers: Esophagitis presence: esophagitis presence not specified Qualified Code(s) : K21.9 - Gastro-esophageal reflux disease without esophagitis (4) DVT prophylaxis Current Visit: No Status: Acute (5) Intractable abdominal pain Current Visit: Yes Status: Acute (6) Nausea Current Visit: Yes Status: Acute - Time Spent With Patient Total time spent is greater than 50% in coordination of care (as documented) at patient's floor/unit and/or counseling patient:
[2018-05-16] MEDS ORDERED: Naloxone 0.4 MG/ML INJ IVP PRN (21:28)
[2018-05-16] MEDS ORDERED: Ondansetron 4 MG/2 ML VIAL IVP PRN (21:30)
[2018-05-16] MEDS ORDERED: OXYCODONE Oral CONC 10 MG/0.5 ML ORAL.SYG SL PRN (22:15)
[2018-05-16] MEDS: 0.9 % Sodium Chloride 1,000 ML IVC SCH (22:21)
[2018-05-17 02:05] LABS: Basophils # 0.1 K/mcL (0.0-0.2); Basophils % 0.6 %; Eosinophils # 0.3 K/mcL (0.0-0.6); Eosinophils % 3.5 %; Hematocrit 39.7 % (37.5-50.1); Hemoglobin 13.7 g/dL (12.9-16.9); Immature Granulocytes % 0.4 % (0-4); Lymphocytes # 2.8 K/mcL (0.6-4.6); Lymphocytes % 31.8 %; Mean Corpuscular HGB Conc 34.5 g/dL (31.6-35.5); Mean Corpuscular Hemoglobin 30.6 pg (28.0-33.3); Mean Corpuscular Volume 88.6 fL (83.0-100.0); Mean Platelet Volume 9.1 fL (9.4-12.4); Monocytes # 0.7 K/mcL (0.0-1.3); Monocytes % 7.9 %; Platelet Count 275 K/mcL (140-400); Red Blood Count 4.48 M/mcL (4.19-5.50); Red Cell Distribution Width 13.2 % (11.5-14.5); Segmented Neutrophils % 55.8 %
[2018-05-17 02:32] LABS: Alanine Aminotransferase 101 Units/L (7-52); Albumin 3.6 g/dL (3.5-5.7); Albumin/Globulin Ratio 1.7 (1.1-2.2); Alkaline Phosphatase 78 Units/L (34-104); Aspartate Amino Transferase 99 Units/L (13-39); BUN/Creatinine Ratio 7 (6-26); Blood Urea Nitrogen 8 mg/dL (6-20); Calcium 8.8 mg/dL (8.6-10.3); Carbon Dioxide 26 mEq/L (23-29); Chloride 107 mEq/L (98-107); Globulin 2.1 g/dL (2.4-3.5); Glucose 93 mg/dL (70-105); Osmolality,Calculated 286 (280-300); Potassium 3.4 mEq/L (3.5-5.1); Sodium 139 mEq/L (136-145); Total Protein 5.7 g/dL (6.4-8.9); eGFR For African Americans > 60 (> 60); eGFR For Non-African Americans > 60 (> 60)
[2018-05-17] MEDS: 0.9 % Sodium Chloride 1,000 ML IVC SCH (05:50)
[2018-05-17] MEDS ORDERED: Pantoprazole 40 MG VIAL IVP SCH (06:30)
--- NOTE | 2018-05-17 07:09 | General Surgery Consult Note ---
Date of Encounter: 05/17/18 Time of Encounter: 07:07 Assessment and Plan (1) Biliary colic symptom Current Visit: Yes Status: Acute I explained to the patient that there may be one of 2 different options available. I will ask one of my colleagues who is on-call today whether or not it would be possible for and perform a laparoscopic cholecystectomy later this afternoon. If not then the other option is to perform a lap scopic cholecystectomy as an outpatient. We will be able to get the approval to the [facility] system and be able to schedule it at a future date. The patient is up to either course and I will touch base with my colleague and inform the patient once at at bedtime to discuss this with with Dr. Smallwood. The patient agrees with the above plan. History of Present Illness Consult date: 05/17/18 Requesting physician: Frieda Jerry History of present illness: Patient is well-known to [facility]. He is a 57-year-old male who was previously seen by one of my partners for epigastric abdominal pain and signs of cholecystitis/biliary colic. He was admitted to the hospital during the week of May 03 actually had plans for a laparoscopic cholecystectomy but the patient wished to try homeopathic remedies and decided against surgery once he was downstairs in the OR suite. He states that his abdominal pain started this past Tuesday/Tuesday with recurrent epigastric pain after eating a fatty meal. He admitted some nausea and presented himself to the [facility] yesterday was subsequently transferred here to [facility] yesterday evening. He states with nausea medication and with some pain medication his pain symptoms that resolved. He admitted to some loose stools but no true diarrhea and denies any constipation or rectal bleeding. Past Med Surg Social Fam HX - Past Medical History Medical history: diabetes, GERD, hypertension, other Additional medical history: HTN,BPH,DM,umbilical hernia,DDD Psychiatric history: no psych history - Past Surgical History Surgical History: herniorrhaphy, orthopedic, other, other Additional surgical history: bilateral knee surgery, umbilical hernia mesh - Social History Smoking Status: Never smoker Smokeless Tobacco Status: No Alcohol use: occasionally Drug use: none - Family History Mother Living Status: Hx Family Cardiac Disorders: No Hx Family Respiratory Disorders: No Hx Family Cancer: Yes (Lung) Hx Family GI Disorders: No Hx Family Genitourinary Disorders: No Hx Family Endocrine Disorder: No Hx Family Musculoskeletal Disorders: No Hx Family Neuromuscular Disorders: No Hx Family Neurologic Disorders: No Hx Family HEENT Disorders: No Hx Family Autoimmune Disorders: No Hx Family Reproductive Disorders: No Hx Family Psychosocial Disorders: No Hx Family Medical Disorders: No Father Living Status: Age at : 63 Hx Family Cardiac Disorders: No Hx Family Respiratory Disorders: No Hx Family Cancer: Yes (Multiple myeloma) Hx Family GI Disorders: No Hx Family Genitourinary Disorders: No Hx Family Endocrine Disorder: Yes (DM) Hx Family Musculoskeletal Disorders: No Hx Family Neuromuscular Disorders: No Hx Family Neurologic Disorders: No Hx Family HEENT Disorders: No Hx Family Autoimmune Disorders: No Hx Family Reproductive Disorders: No Hx Family Psychosocial Disorders: No Hx Family Medical Disorders: No Daughter Living Status: Still Living Hx Family Cardiac Disorders: No Hx Family Respiratory Disorders: No Hx Family Cancer: No Hx Family GI Disorders: No Hx Family Genitourinary Disorders: No Hx Family Endocrine Disorder: No Hx Family Musculoskeletal Disorders: No Hx Family Neuromuscular Disorders: No Hx Family Neurologic Disorders: No Hx Family HEENT Disorders: No Hx Family Autoimmune Disorders: No Hx Family Reproductive Disorders: No Hx Family Psychosocial Disorders: No Hx Family Medical Disorders: No Medications and Allergies Esomeprazole Magnesium [Nexium] 40 mg PO DAILY 06/07/17 [History] Losartan Potassium [Cozaar] 100 mg PO DAILY 06/07/17 [History] Terazosin HCl 2 mg PO DAILY 06/07/17 [History] metFORMIN [Glucophage] 500 mg PO BID 06/07/17 [History] 3 Allergy/AdvReac Type Severity Reaction Status Date / Time lisinopril AdvReac Cough Verified 05/16/18 19:25 Review of Systems All systems PM: reviewed and no additional remarkable complaints except as stated All systems PM: The remainder of the systems were reviewed and are negative General Surgery Exam Initial Vital Signs Temp Pulse Resp BP Pulse Ox 98.1 F 64 18 187/98 99 05/16/18 18:25 05/16/18 18:25 05/16/18 18:25 05/16/18 18:25 05/16/18 18:25 - Eyes PERRL, normal ocular movement - Respiratory normal expansion, normal respiratory effort, clear to auscultation - Cardiovascular Cardiovascular exam: Present: RRR, no murmurs/rubs/gallops - Abdomen Abdomen general surgery: Present: bowel sounds present, soft, tender (Mild epigastric pain palpation) - Neurologic Present: CN 2-12 grossly intact - Psychiatric Psychiatric general surgery: Present: A&Ox3, appropriate, oriented to person, oriented to place Exam Initial Vital Signs Temp Pulse Resp BP Pulse Ox 98.1 F 64 18 187/98 99 05/16/18 18:25 05/16/18 18:25 05/16/18 18:25 05/16/18 18:25 05/16/18 18:25 Results - Labs 05/17/18 01:46 05/17/18 01:46 Abnormal lab results MPV 9.1 fL (9.4-12.4) L 05/17/18 01:46 Potassium 3.4 mEq/L (3.5-5.1) L 05/17/18 01:46 AST 99 Units/L (13-39) H 05/17/18 01:46 ALT 101 Units/L (7-52) H 05/17/18 01:46 Serum Total Protein 5.7 g/dL (6.4-8.9) L 05/17/18 01:46 Globulin 2.1 g/dL (2.4-3.5) L 05/17/18 01:46 Urine Clarity Cloudy (Clear) A 05/16/18 19:15 All other labs normal. Consult Discharge Plan - Plan Referrals: [facility] [Primary Care Provider] -
[2018-05-17] MEDS: Insulin LISPRO 300 UNITS/3 ML VIAL SQ SCH ×2 (07:46→12:29)
[2018-05-17] MEDS ORDERED: Piperacillin/Tazobactam 3.375 GM in 0.9 % Sodium Chloride Mini Bag 100 ML IVPB SCH (08:00)
--- NOTE | 2018-05-17 10:49 | Discharge Summary ---
- NOTES TO OUTPATIENT PROVIDER Notes to Outpatient Provider: The patient will have an elective cholecystectomy soonoutpatient. Orders not resulted at time of discharge: Pending orders 05/18/18 04:00 BMP [Basic Metabolic Panel] AM 0400 CBC [Complete Blood Count] [HEME] AM 0400 Date of Encounter: 05/17/18 Time of Encounter: 10:47 - Discharge Diagnosis (1) Acute calculous cholecystitis Priority: Primary Status: Acute (2) GERD (gastroesophageal reflux disease) Priority: Secondary Status: Chronic Qualifiers: Esophagitis presence: esophagitis presence not specified Qualified Code(s) : K21.9 - Gastro-esophageal reflux disease without esophagitis (3) Type 2 diabetes mellitus Priority: Secondary Status: Chronic Qualifiers: Diabetes mellitus long winder tender insulin use: without fci use Diabetes mellitus complication status: without complication Qualified Code(s): E11.9 - Type 2 diabetes mellitus without complications (4) Hypertension Priority: Secondary Status: Chronic Qualifiers: Hypertension type: essential hypertension Qualified Code(s): I10 - Essential (primary) hypertension (5) Acute hypokalemia Priority: Secondary Status: Acute Hospital course: Mr. Arroyo is a 57 year old male. The patient was admitted with biliary colic. His CAT scan of abdomen/pelvis from May 03 showed cholelithiasis with distended/inflamed gallbladder. It was a 8 days ago, when he had similar problem. He decided not to proceed with surgery. His abdominal pain subsided shortly after admitting him to the emergency room. Surgery was consulted. They discussed with the patient further treatment options. An elective cholecystectomy will be done in a few days. I am discharging him home today. He feels good. Denies abdominal pain, nausea and vomiting. Denies chest pain. Denies difficulty breathing, coughing, and wheezing. He has normal bowel movements. He has normal urination. Discharge discussed with: patient, family - Time Spent with Patient Total time spent providing and/or coordinating discharge services: Greater than 30 minutes - Discharge Medications Home Medications: Esomeprazole Magnesium [Nexium] 40 mg PO DAILY 06/07/17 [History] Losartan Potassium [Cozaar] 100 mg PO DAILY 06/07/17 [History] Terazosin HCl 2 mg PO DAILY 06/07/17 [History] metFORMIN [Glucophage] 500 mg PO BID 06/07/17 [History] Allergies/Adverse Reactions: 3 Allergy/AdvReac Type Severity Reaction Status Date / Time lisinopril AdvReac Cough Verified 05/16/18 19:25 Date of admission: 05/17/18 07:00 Primary care physician: PCP ND Consults: Gen. surgery consult. Discharging clinician: Isra Bob Anticipated date of discharge: 05/17/18 - Constitutional Vitals: Temp Pulse Resp BP Pulse Ox 97.8 F 56 16 143/91 96 05/17/18 06:48 05/17/18 06:48 05/17/18 06:48 05/17/18 06:48 05/17/18 06:48 General appearance: Present: A&O X 3, pleasant, no acute distress, answers questions appropriately - Respiratory Respiratory exam: Present: CTAB. Absent: accessory muscle use, rales, rhonchi, wheezes - Cardiovascular Cardiovascular exam: Present: RRR, +S1, +S2. Absent: diastolic murmur, gallop, rubs, systolic murmur - GI/Abdominal GI/Abdominal exam: Present: normal bowel sounds, soft, no peritoneal signs. Absent: distended, tenderness - Patient Status Disposition: Home, Self-Care Condition: Good - Discharge Instructions Follow Up With: Josh Mayfield MD [Partnered Physician] - 05/29/18 4:15 pm [facility],PCP [Primary Care Provider] - Additional Instructions: He will stay on low-fat diet. His meals will be small; 3 or 4 times a day. - Diet and Activity Activity: resume usual activities as tolerated - VTE Reasons for not Prescribing Prophylaxis: Treatment not Indicated - Low risk for VTE Deep Vein Thrombosis/Pulmonary Embolism Present on Admission: No
[2018-05-17 10:58] VITALS: BP 117/72
--- NOTE | 2018-05-17 11:02 | Event Note ---
Date of Encounter: 05/17/18 Time of Encounter: 10:45 - Patient Status Disposition: Home, Self-Care Condition: Good Functional capacity at discharge: independent ambulation Overall status at discharge: patient is progressing back to baseline - Discharge Instructions Follow Up With: [facility] [Primary Care Provider] - Josh Mayfield MD [Partnered Physician] - 05/29/18 4:15 pm - Diet and Activity Activity: increase activity as tolerated Diet: low fat, low cholesterol
== END 2018-05-17 14:40 | disposition home or self-care (01) | DRG 446 ==
LOC: EMEROO 18:24 → 3ANU 18:24 → SUATTDRO 05-17 07:00
PROVIDERS: ADMIT Internal Medicine; ATTEND Internal Medicine